=== PATIENT | female | born 1930 | race Caucasian/White ===

== ENCOUNTER 2016-11-26 10:54 | Day surgery (SDC) | payer BC ==
[~2016-11-26 10:54] MED LIST: ACET500CAP PEG; ACET500CAP PO; ACETUDL PEG; ACIPHEX PO; APRISO0.375 GM PO; ASAB PO; ATIVAN2I IV; ATV1 PEG; ATV1 PO; BENICAR HCT1 TA2 PO; CALMOSEPTINE O2.5 OZ TOP; CALTRA600D PO; CELEXA10 PO; CELEXA20 PO; CENTRUM TAB1 TAB PO; FLONASE NAS; FOLIC PEG; FOLIC PO; FRESHKOTE OPH; KAOPECTATE262 MG/15 PEG; KAPIDEX60 MG PO; KLOR-CON M2020 MEQ PO; LINZESS 145 M145 MCG PO; LIPITOR20 PO; LOP25 PEG; MELA3 PEG; METPAKSF PO; NASACORTAQ NAS; NASONEX NAS; NATURA2 OPH; NORV10 PO; NORV5 PO; PANCRELIPASE PEG; PRESERVISION PO; PRILO PO; PROAIR HFA INH; PROVENTSOL PO; REG5 PO; RISAMINE OINTMENT TOP; SINGULAIR1 PO; SODBICAR10 PEG; SYSTANE OPH; TOPXL25 PO; TOPXL50 PO; TYLENOL 8 HR650 MG PO; VITAMIN D2000 UNIT PEG; XARELTO15 MG PO; XARELTO20 MG PO; ZANTAC150 MG PO; ZOFRAN ODT4 MG PEG; ZOFRAN4 PEG; ZOFRAN4 PO; [UNRECOGNIZED DRUG - CODE] PEG
[2016-11-27] MEDS ORDERED: ASAB PO (14:57)
[2017-03-26] MEDS ORDERED: SINGULAIR1 PEG (01:05)
[2017-03-26] MEDS ORDERED: ZOFRAN ODT4 MG PO (01:05)
[2017-03-26] MEDS ORDERED: LOP25 PEG (01:06)
[2017-03-26] MEDS ORDERED: CELEXA20 PEG (01:06)
[2017-03-26] MEDS ORDERED: FOLIC PEG (01:06)
[2017-03-26] MEDS ORDERED: RISAMINE OINTMENT TOP (01:07)
[2017-03-26] MEDS ORDERED: ASAB PEG (01:08)
[2017-03-26] MEDS ORDERED: NEO-OINT15 TOP (01:08)
[2017-03-26] MEDS ORDERED: ACET500CAP PEG (01:09)
[2017-03-26] MEDS ORDERED: ATV1 PEG (01:10)
[2017-03-27] MEDS ORDERED: ERY-TAB250 MG PO (17:04)
== END 2016-11-26 23:59 | disposition home or self-care (01) ==
LOC: DMU 10:54
PROVIDERS: Internal Medicine Gastroenterology
PROC: 0D2DXUZ Change Feeding Device in Lower Intestinal Tract, External Approach (ICD-10-PCS; principal; 2016-11-26 11:00)
DX: K94.23 Gastrostomy malfunction (principal); I10 Essential (primary) hypertension; Z88.2 Allergy status to sulfonamides; J45.909 Unspecified asthma, uncomplicated; Z90.710 Acquired absence of both cervix and uterus; Z98.890 Other specified postprocedural states; Z90.49 Acquired absence of other specified parts of digestive tract; Z88.0 Allergy status to penicillin; Z79.899 Other long term (current) drug therapy
CPT/HCPCS: 49465; J1170; J1885; J2250; J2405; J2710; J3010